=== PATIENT | female | born 1940 | race Caucasian/White ===

== ENCOUNTER → 2016-05-18 | Outpatient (CLI) | payer MEDICARE ==
[2015-07-13 11:40] VITALS: BP 146/78
[~2016-05-18] MED LIST: ACET325T9 PO; ASPI81TA2 PO; CALC166. PO; CHOL200044 PO; CRESTOR40 MG PO; CYAN10005 PO; DIPH50CA59 PO; EZET10TA3 PO; Elavil PO; FAMO20TA38 PO; FLUT16SP NS; FLUT250D IH; LEVO50TA5 PO; LORA10TA68 PO; LOSA100T6 PO; LUTE20TA PO; MAGN400C PO; MELA3TAB PO; MELO15TA6 PO; METO25TA4 PO; MONT10TA9 PO; MULT-246 PO; NITR0.4T SL; OMEP20CA5 PO; PROAIR HFA8.5 GM IH; RIVA20TA2 PO; TERI2.4P SQ; UBID400C3 PO; [UNRECOGNIZED DRUG - CODE] PO
--- NOTE | 2016-05-18 15:12 | KCIC ---
PROCEDURE Two view lumbar spine series HISTORY History of compression fracture and lumbar fusion. Lumbar radiculopathy extending down the right leg. COMPARISON October 11, 2015. FINDINGS Again seen is a moderate compression fracture of L1 which has been treated with a vertebroplasty and is stable. Again seen are interspinous fusion devices at L1-2 and L2-3 and L3-4. Again seen are transpedicular screws at L4 and L5 and S1 connected by 2 vertical stabilizer bars and 1 horizontal stabilizer bar. Horizontal screw is seen extending through the sacrum across the SI joint into the iliac bone on each side. Again seen are interbody disc space fusion devices at L2-3 and L3-4 and L4-5 and L5-S1. No discitis or osteolytic process is seen. Alignment is stable. Again seen is moderate degenerative spurring at T12-L1 and L1-L2 especially anteriorly. Moderate degenerative disc space narrowing of L1-2 is seen. Dextroscoliosis is seen. Bilateral hip prostheses are seen. IMPRESSION Stable lumbar fusion. Stable moderate compression fracture of L1. Electronically signed by: Didier Jackman MD (May 18, 2016 15:11:21)
--- NOTE | 2016-05-18 15:28 | KCIC ---
PROCEDURE CT lumbar spine without contrast. HISTORY Radiculopathy extending down the right leg. Prior surgeries. TECHNIQUE Axial images and coronal and sagittal re-formatted images are provided. One or more of the following individualized dose reduction techniques were utilized for this exam: 1. Automated exposure control. 2. Adjustment of the mA and/or kV according to patient's size. 3. Use of iterative reconstruction technique. COMPARISON Radiographs from earlier today. CT from December 08, 2012. FINDINGS Findings of vertebroplasty are again noted at L1. Interbody bone cages appear incorporated at L2-L3, L3-L4, and L4-L5. Interbody bone cage at L5-S1 is probably at least partially incorporated. Pedicle screw and kamila instrumentation extends from L4 through S1. No perihardware lucency is noted. Interspinous spacer devices are noted at L1-L2, L2-L3, and L3-L4. All hardware appears similar to the November 2012 exam. There is no change in alignment, slight dextrocurvature centered at L1. There is no high-grade canal stenosis apparent. Streak artifact limits evaluation. There is atheromatous disease in the abdominal aorta. IMPRESSION - Extensive postsurgical change from L2 through the sacrum. No change in positioning of the hardware or evidence of complication. - No definite high-grade canal or foraminal compromise. - Previous vertebroplasty at L1. Electronically signed by: Tito Nam MD (May 18, 2016 15:26:44)
== END | disposition home or self-care (01) ==
LOC: KCIC CT 13:03
PROVIDERS: ATTEND Neurological Surgery
DX: M54.16 Radiculopathy, lumbar region (principal)
CPT/HCPCS: 72100; 72131

== ENCOUNTER → 2018-08-27 | Outpatient (CLI) | payer MEDICARE ==
[2015-07-13 11:40] VITALS: BP 146/78
[~2018-08-27] MED LIST changes: +ALBU2.5V8 IH; +ASPI-630 PO; -ASPI81TA2 PO; +EZET10TA18 PO; -EZET10TA3 PO; +LOSA100T14 PO; -LOSA100T6 PO; -MELA3TAB PO; +MELA3TAB2 PO; +MONT10TA49 PO; -MONT10TA9 PO; -PROAIR HFA8.5 GM IH
--- NOTE | 2018-08-27 13:33 | KCIC ---
LUMBAR SPINE 2-3V History: Lumbar fusion, recent twisting injury resulting in low back discomfort Comparison: May 18, 2016 Findings: 2 views lumbar spine are submitted. There is again posterolateral fusion hardware L4, L5, S1, also screws traversing the sacroiliac joints bilaterally. Hardware is unchanged in position. There are again posterior interspinous fusion devices L4-5, L2-3, L1-2. There are again interbody grafts at L5-S1, L4-5, L3-4, L2-3. There again has been vertebroplasty at L1. There is again degenerative disc disease T12-L1 and L1-2 with spondylosis at these levels. There is kyphosis of visualized inferior thoracic spine. There is again mild lumbar dextroscoliosis. There are bilateral hip arthroplasties. There is atherosclerotic calcification of the abdominal aorta. Vertebral body stature is unchanged. AP alignment is similar. Impression: 1. Position of multilevel hardware of the lumbar spine is similar, no acute osseous abnormality identified by radiographs. There is again spondylosis and degenerative disc disease at the L1-L2 and T12-L1 levels. Electronically signed by: Marcos Mcnamara MD (08/27/2018 1:30 PM) [facility]
== END | disposition home or self-care (01) ==
LOC: KCIC 11:31
PROVIDERS: ATTEND Neurological Surgery
DX: M51.35 Other intervertebral disc degeneration, thoracolumbar region (principal); M40.294 Other kyphosis, thoracic region; M47.815 Spondylosis without myelopathy or radiculopathy, thoracolumbar region; I70.0 Atherosclerosis of aorta; Z98.1 Arthrodesis status
CPT/HCPCS: 72100

== ENCOUNTER → 2018-09-11 | Outpatient (CLI) | payer MEDICARE ==
[2015-07-13 11:40] VITALS: BP 146/78
--- NOTE | 2018-09-11 14:09 | KCIC ---
MRI of the cervical spine without contrast 09/11/2018 CLINICAL HISTORY: Neck pain for 3 months. TECHNIQUE: Unenhanced T1-weighted, T2-weighted and inversion recovery sagittal and gradient echo and T2-weighted axial images of the cervical spine were obtained. FINDINGS: Comparison study is dated 04/04/2014. Minimal lateral curvature of the cervical spine is seen convex to the left. There is straightening of the normal cervical lordosis. Degenerative signal changes and loss of height are seen involving all of the disks of the cervical spine. Degenerative signal changes are seen within the marrow surrounding these discs. No area of abnormal signal intensity is seen involving the cervical spinal cord. At the C2-3 disc space there is a minimal generalized disc bulge. Degenerative changes are seen involving the uncovertebral and facet joints, right greater than left. These findings do not result in significant central spinal canal or neural foraminal stenosis. At the C3-4 disc space there is a mild to moderate generalized disc bulge. This is eccentric to the right. Degenerative changes are seen involving the uncovertebral and facet joints bilaterally. These findings do not result in significant central spinal canal stenosis. Mild bilateral neural foraminal stenosis is seen. At the C4-5 disc space there is a mild generalized disc bulge. Degenerative changes are seen involving the uncovertebral and facet joints, left greater than right. These findings when combined do not result in significant central spinal canal stenosis. Mild to moderate left neural foraminal stenosis is seen. The right neural foramen is patent. At the C5-6 disc space there is a mild generalized disc bulge. Degenerative changes are seen involving the uncovertebral and facet joints bilaterally. These findings do not result in significant central spinal canal or neural foraminal stenosis. At the C6-7 disc space there is a mild to moderate generalized disc bulge. Degenerative changes are seen involving the uncovertebral and facet joints, left greater than right. These findings do not result in significant central spinal canal stenosis. Very mild left neural foraminal stenosis is seen. The right neural foramen is patent. At the C7-T1 disc space there is a mild generalized disc bulge. Degenerative changes are seen involving the uncovertebral and facet joints bilaterally. These findings do not result in significant central spinal canal or neural foraminal stenosis. Since the previous examination has been no significant interval change. IMPRESSION: Degenerative changes are seen throughout the cervical spine. These findings do not result in significant central spinal canal stenosis at any level. Mild bilateral neural foraminal stenosis is seen at C3-4. Mild to moderate left neural foraminal stenosis is seen at C4-5. Very mild left neural foraminal stenosis is seen at C6-7. Electronically signed by: Inder Leal MD (09/11/2018 2:06 PM) [facility]
== END | disposition home or self-care (01) ==
LOC: KCIC MRI 12:26
PROVIDERS: ATTEND Neurological Surgery
DX: M47.813 Spondylosis without myelopathy or radiculopathy, cervicothoracic region (principal); M48.02 Spinal stenosis, cervical region
CPT/HCPCS: 72141